=== PATIENT | female | born 1965 | race Caucasian/White ===

== ENCOUNTER → 2024-06-05 | Outpatient (CLI) | payer BC ==
[2024-06-05 11:35] LABS: Partial Thromboplastin Time 24.6 sec (22.0-30.0); Prothrombin Time 10.8 sec (10.0-12.5)
[2024-06-05 15:39] LABS: HCT 42.3 % (37.2-46.3); HGB 13.8 g/dL (12.0-15.0); MCH 29.8 pg (27.0-32.0); MCHC 32.6 g/dL (32.0-37.0); MCV 91.4 FL (80.0-97.0); Mean Platelet Volume 10.9 FL (9.5-12.2); NRBC Per 100 WBC 0 X 10*3/uL (0.00-0.01); Platelet Count 317 X 10*3/uL (140-440); RBC 4.63 X 10*6/uL (4.10-5.20); RDW 13.5 % (11.5-14.5); WBC 7.78 X 10*3/uL (4.50-10.00)
[2024-06-05 15:56] LABS: ALT 38 U/L (8-44); AST 30 U/L (13-35); Albumin 4.1 g/dL (3.8-4.9); Albumin/Globulin Ratio 1.32 Ratio (1.60-3.17); Alkaline Phosphatase 61 U/L (41-126); Blood Urea Nitrogen 25.3 mg/dL (9.0-27.0); Calcium 9.3 mg/dL (8.7-10.3); Carbon Dioxide 23.2 mmol/L (21.6-31.8); Chloride 105 mmol/L (96-109); Globulin 3.1 g/dL (1.6-3.3); Glucose 184 mg/dL (70-110); Potassium 4.3 mmol/L (3.5-5.5); Sodium 140 mmol/L (135-145); Total Bilirubin 0.7 mg/dL (0.3-1.2); Total Protein 7.2 g/dL (6.2-8.2)
== END | disposition home or self-care (01) ==
LOC: LABPAT 10:42
PROVIDERS: ATTEND Orthopaedic Surgery
DX: Z01.818 Encounter for other preprocedural examination (principal); M17.11 Unilateral primary osteoarthritis, right knee; Z22.322 Carrier or suspected carrier of Methicillin resistant Staphylococcus aureus
CPT/HCPCS: 80053; 85027; 85610; 85730; 87070; 93005

== ENCOUNTER 2024-07-01 09:12 | Observation (INO) | payer BC ==
[2024-06-27 16:21] VITALS: BMI 29.4
[~2024-07-01 09:12] MED LIST: HYDROmorphone 0.5 MG/0.5 ML SYRINGE IVP PRN; LIDOCAINE 1% (10MG/ML) FOR IV START INTRADERMA PRN; TRANEXAMIC 1,000 MG/100ML-NACL 1,000 MG in SALINE 1 100ML.BAG IVPB PRN; fentaNYL (PF) 50 MCG/ML 2 ML AMP IVP PRN
[2024-07-01 09:55] LABS: Glucose,Whole Blood 136 mg/dL (70-110)
[2024-07-01] MEDS: LACTATED RINGERS 1,000 ML IV SCH (09:55)
[2024-07-01] MEDS: IV FLUID CONTINUATION 1,000 ML IV ONE (09:55)
[2024-07-01] MEDS: GABAPENTIN 300 MG CAP PO PRN (09:57)
[2024-07-01] MEDS: ACETAMINOPHEN TAB 500 MG TAB PO PRN (09:57)
[2024-07-01] MEDS: MELOXICAM 7.5 MG TAB PO PRN (09:57)
[2024-07-01] MEDS: ONDANSETRON 4 MG/2 ML VIAL IVP ONE (09:58)
[2024-07-01] MEDS: DEXAMETHASONE SOD PHOSPHATE 4 MG/ML 1 ML VIAL IV ONE (09:59)
[2024-07-01] MEDS: MIDAZOLAM 2 MG/2 ML VIAL IV PRN (10:14)
--- NOTE | 2024-07-01 10:20 | P.OP ---
Date of Procedure: 07/01/24 Preoperative Diagnosis: Severe osteoarthritis right knee Postoperative Diagnosis: Severe osteoarthritis right knee Procedure(s) Performed: Right total knee arthroplasty Implants: [employer] Journey II CR Oxinium cruciate retaining femoral component size 5, right [employer] Journey nonporous tibial baseplate size 4, right [employer] Journey II, XLPE Deep Dished articular insert, size 12 mm, Size 3-4, right [employer] Journey Hallie II resurfacing patellar component, oval, 29 mm All components were cemented using Palacos R bone cement The articulation is Oxinium on polyethylene Anesthesia: spinal Surgeon: Cory Rodriguez Director Funeral #1: Bushra Gasca Estimated Blood Loss (ml): 40 Pathology: none sent Condition: stable Disposition: PACU Indications for Procedure: The patient's knee is end-stage, and conservative management has failed. The operation of knee replacement has been discussed at length in the office, as well as potential risks and complications. These are inclusive of, but not limited to: Infection, bleeding, scarring, discomfort, stiffness, blood vessel and nerve damage, need for further surgery, failure to relieve symptoms, persistence, recurrence, or worsening of problems, loosening, dislocation, wear, blood clot, pulmonary embolism, , gait dysfunction, stiffness, and other risks as discussed in the office. Patient elects to proceed and the consent form has been signed. Operative Findings: The operative findings are consistent with severe osteoarthritis of the right knee Description of Procedure: The patient was seen in the preoperative area, the consent was reviewed and the operative site was marked with a skin marker. The patient verified the procedure and the operative site. An adductor canal pain catheter and an iPACK block were placed by anesthesia in the preoperative area. The patient was then brought to the operating room and positioned on the operating room table in the supine position. Preoperative antibiotics and a gram of tranexamic acid were given intravenously. A spinal anesthetic was administered by the anesthesia department. Care was taken to make sure that all pressure points were adequately padded. A tourniquet was placed on the upper thigh and the lower extremity was prepped with ChloraPrep and draped in usual sterile fashion. A universal time-out was then performed which confirmed the patient's name, surgical site, ALLERGIES, and consent. The lower extremity was then exsanguinated and tourniquet was inflated to 250 mmHg. A standard anterior midline approach to the knee was performed. The skin and subcutaneous tissue were sharply dissected down to the patellar tendon. A medial parapatellar arthrotomy was then performed. The knee was then extended, the patellar was everted, and the knee was flexed. The infra-patellar fat pad was removed in order to enhance exposure. The anterior horns of both menisci were excised, and a release was performed to the posterior medial aspect of the knee. On gross visual inspection, there was complete loss of articular cartilage in the medial and patellofemoral joint spaces. There was also significant cartilage damage in the lateral compartment. There were multiple periarticular osteophytes globally about the knee which were then removed with a Ronguer. The femoral canal was then opened with the 9.5 mm intramedullary drill. The 8 mm intramedullary troy was then inserted into the femoral canal with the distal femoral cutting guide set for 5 of valgus. The distal femoral cutting block was then pinned in place. The intramedullary troy was then removed, and the distal femur was then cut. The cutting block was then removed and the cut was checked for symmetry. The resected bone was then measured to confirm the appropriate distal femoral resection. Next, the sizing guide was then placed and set for 3 external rotation based off of the epicondylar axis and Oldham's line. Pins were then placed and the drill holes, and the femur was sized with the sizing stylus. The pins were then removed, and the sizing guide was then removed. The spikes of the appropriate size femoral block was then placed into the predrilled holes, and malleted into place. Two 45 mm pins were then placed into the fixation holes on the cutting block. An kailyn wing was then used to ensure there would be no notching with the anterior cut. The anterior condyles were cut without notching. The anterior chord cut was then performed, followed by the posterior cut, posterior chamfer cut, and the anterior chamfer cut. The collateral ligaments were protected during the entire process. The cutting block was then removed. Any remaining bone and osteophytes were removed from the femur with a Ronguer. Attention was then directed to the tibia. The remaining ACL was removed with a Ronguer, and the tibia was then gently subluxed forward with a large bent knee retractor. Any remaining menisci were excised. The posterior lateral corner was cauterized in order to coagulate the lateral geniculate artery. The extra medullary tibial cutting guide was then placed, set for the appropriate rotation, slope, and depth of resection. The proximal tibia cutting guide was then pinned in place. Proximal tibia was then cut and sized. A curved osteotome was then used to remove any posterior osteophytes from the distal femur. The femoral trial was placed. A narrow saw blade was then used to remove the anterior intracondylar femoral bone. The CR notch trial was then placed. The tibial trial was placed with the appropriate-sized insert. The knee was able to fully extend and flex to 130 and was stable throughout all range of motion. The knee was then extended and the patella was everted. Patella was then measured, and then using an osteotomy guide, the patella was cut at the appropriate level. The patellar component was sized. The patellar drill guide was placed and the patella was drilled. The patella trial was then placed. The knee was then taken through range of motion with the patella trial and the patella tracked normally using the no thumbs technique. The patella trial was then removed. The knee was then flexed and lug holes were drilled through the femoral trial and the femoral trial was then removed. The tibial was then re- exposed, and the tibial broach guide was then pinned in place after it was set for the appropriate rotation to allow for the most coverage without overhang. The tibia was then reamed and broached. The femoral canal was plugged with autologous bone. The cut surfaces of bone were then irrigated with pulsatile lavage. The knee was also irrigated with Irrisept solution. The components were then opened, the cement was mixed. Cement was placed on the backside of the femoral, tibial, and patellar components. Cement was then applied to the tibial surface and pressurized into the surface using finger pressurization technique. The tibial component was then applied and excess cement was removed after it was impacted securely noted to be flush with the cut surface. In similar fashion, the cement was applied to the cut femoral surface, pressurized and using finger pressurization the component was impacted in place. Excess cement was removed. The polyethylene spacer was then implanted and locked into position. Patellar component was then applied in a similar technique and the patellar clamp was used to hold patella in place while the cement hardened. The knee was held in full extension while the cement hardened. Once the cement had fully hardened, the knee was reinspected. Any other cement extrusion was removed the final range of motion testing showed range of motion from 0-130 with excellent stability, both medial and laterally and appropriate alignment of the leg. Patella tracked normally. After the cemented hardened, the tourniquet was released and hemostasis was obtained. A second gram of transexamic acid was given intravenously. The knee was again irrigated. The knee was again taken through range of motion and found to be stable throughout all range of motion of 0-130, and the patella tracked normally. The fascia was then closed with 0 Vicryl followed by #2 strata fix suture. The subcutaneous tissue was closed with 3-0 Vicryl and 3-0 monocryl. Exofin glue was used for the skin and placed with the knee in flexion. After the glue had dried, and Optafoam silver impregnated dressing was applied. A lightly compressive dressing was applied using web roll and Gold wrap. Patient was then transferred to the stretcher and taken to recovery room in stable condition. Sponge and needle counts were correct. The academic affairs assistant Bushra Gasca NP was required due the complexity surgery and the need for a skilled surgical corsetier. She assisted in positioning, draping, retraction, and closure of the wound.
--- NOTE | 2024-07-01 10:41 | P.ANPRN ---
Procedure Note - Anesthesia - Nerve Block Performed Right Adductor Canal Infusion Time Out Performed: Yes Date of Procedure: 07/01/24 Procedure Start Time: Procedure Stop Time: Location of Patient: PreOp Indication: Acute Post-Operative Pain, Requested by Surgeon Sedation Type: Sedate with meaningful contact maintained Preparation: Sterile Prep, Sterile Dressing Position: Supine Catheter: Indwelling Needle Types: Pajunk Needle Gauge: 18 Ultrasound used to visualize needle placement: Yes Ultrasound used to observe medication spread: Yes Injectate: 0.5% Ropivacaine (see comment for volume) (20 ml + 10 ml NS + 4 mg Dexamethasone) Blood Aspirated: No Pain Paresthesia on Injection Noted: No Resistance on Injection: Normal Image Stored and Saved: Yes Events: Uneventful and Well Tolerated
--- NOTE | 2024-07-01 10:43 | P.ANPRN ---
Procedure Note - Anesthesia - Nerve Block Performed Right iPack Single Time Out Performed: Yes Date of Procedure: 07/01/24 Procedure Start Time: : Procedure Stop Time: :35 Location of Patient: PreOp Indication: Acute Post-Operative Pain, Requested by Surgeon Sedation Type: Sedate with meaningful contact maintained Preparation: Sterile Prep Position: Left Lateral Needle Types: Pajunk Needle Gauge: 21 Ultrasound used to visualize needle placement: Yes Ultrasound used to observe medication spread: Yes Injectate: 0.5% Ropivacaine (see comment for volume) (20 ml + 10 ml NS + 4 mg Dexamethasone) Blood Aspirated: No Pain Paresthesia on Injection Noted: No Resistance on Injection: Normal Image Stored and Saved: Yes Events: Uneventful and Well Tolerated
[2024-07-01] MEDS ORDERED: PROPOFOL 10 MG/ML 20 ML VIAL IV ONE (11:10)
[2024-07-01] MEDS ORDERED: DEXAMETHASONE SOD PHOSPHATE 4 MG/ML 1 ML VIAL ONE (11:10)
[2024-07-01] MEDS ORDERED: TRANEXAMIC 1,000 MG/100ML-NACL PREMIX BAG ONE (11:10)
[2024-07-01] MEDS ORDERED: SODIUM CHLORIDE 0.9% (PF) 10 ML VIAL ONE (11:10)
[2024-07-01] MEDS ORDERED: MIDAZOLAM 2 MG/2 ML VIAL ONE (11:10)
[2024-07-01] MEDS ORDERED: ROPIVACAINE 5 MG/ML 30 ML VIAL ONE (11:10)
[2024-07-01] MEDS ORDERED: NA PHOS,M-B/NA PHOS,DI-BA 133 ML ENEMA RECTAL PRN (11:23)
[2024-07-01] MEDS ORDERED: NALOXONE 0.4 MG/ML 1 ML VIAL IV PRN (11:23)
[2024-07-01] MEDS ORDERED: bisacodyL 10 MG SUPP RECTAL PRN (11:23)
[2024-07-01] MEDS ORDERED: ONDANSETRON 4 MG/2 ML VIAL IVP PRN (11:23)
[2024-07-01] MEDS ORDERED: HYDROcodone/APAP 5-325MG 1 EACH TAB PO PRN ×2 (11:23)
[2024-07-01] MEDS ORDERED: MAGNESIUM HYDROXIDE 2,400 MG/30 ML CUP PO PRN (11:23)
[2024-07-01] MEDS: ceFAZolin 1,000 MG in SODIUM CHLORIDE 0.9% 1,000 ML IRRIGATION ONE (11:41)
[2024-07-01] MEDS: LACTATED RINGERS 1,000 ML IV ONE (12:19)
[2024-07-01] MEDS: ROPIVACAINE 1,100 MG, SODIUM CHLORIDE 0.9% 500 ML 330 ML, EMPTY PAIN BALL 1 EACH MISCELLANE PRN (13:30)
[2024-07-01 13:41] LABS: Glucose,Whole Blood 147 mg/dL (70-110)
--- NOTE | 2024-07-01 13:44 | XR ---
EXAMINATION TYPE: XR knee limited RT DATE OF EXAM: 07/01/2024 1:40 PM INDICATION: Patient age:Female; 59 years old; Reason for study: Evaluation for Postop abnormality and alignment; PHH. COMPARISON: None. TECHNIQUE: The Right knee(s) was examined in frontal and lateral projections. FINDINGS: Status post total right knee arthroplasty changes with hardware in appropriate alignment and intact. No evidence of fracture. Subcutaneous lucencies and lucencies within the joint consistent with surgical changes. IMPRESSION: Status post total right knee arthroplasty changes with hardware intact and appropriate alignment. No fractures identified. [facility], , 07/01/2024 1:42 PM
[2024-07-01] MEDS: HYDROmorphone 1 MG/ML 1 ML SYRINGE IVP PRN (15:05)
[2024-07-01] MEDS: GABAPENTIN 300 MG CAP PO SCH (16:43)
[2024-07-01] MEDS: HYDROcodone/APAP 7.5-325MG 1 EACH TAB PO PRN (16:47)
[2024-07-01 16:49] LABS: Glucose,Whole Blood 244 mg/dL (70-110)
[2024-07-01] MEDS ORDERED: DEXTROSE 50% SYRINGE 50 ML IVP PRN ×2 (17:01)
--- NOTE | 2024-07-01 17:14 | P.CONS ---
History of Present Illness - Reason for Consult Consult date: 07/01/24 Medical Management Requesting physician: Cory Rodriguez - History of Present Illness History of Presenting Illness: Patient is a pleasant 59-year-old female with a past medical history of hypertension, hyperlipidemia, insulin-dependent diabetes mellitus, rheumatoid arthritis, hypothyroidism, ocular stroke of left eye, obstructive sleep apnea CPAP dependent nightly, and Crohn's disease. She is currently admitted under orthopedic surgery team status post elective right total knee arthroplasty. We were consulted for medical management throughout hospitalization. Patient was seen and fully evaluated in room 477 shortly after completion of surgical procedure. She currently reports controlled postoperative pain at this time. She is tolerating clear liquid diet and denies having any postoperative nausea or vomiting. Patient denies having any headache, lightheadedness, dizziness, chest pain, palpitations, shortness of breath, nausea, vomiting, or experiencing any numbness in her extremities. Patient reports initially after surgery she was having some numbness and tingling in her toes but states that is since resolved. She reports she began having some creeping up pain but was provided with pain medication by RN and is currently feeling well. Review of systems: Pertinent positives and negatives as discussed in HPI, a complete review of systems was performed and all other systems are negative. Physical exam: Vital signs reviewed and stable. General: Nontoxic, no distress and appears stated age. Derm: Skin warm and dry, normal coloration for ethnicity. Head: Atraumatic, normocephalic and symmetric. Eyes: EOM's intact, no lid lag, and anicteric sclera Mouth: no lip lesions, mucus membranes moist Cardiovascular: regular rate and rhythm with normal S1S2, no murmur, positive posterior tibial pulses bilaterally, and cap refill < 2 seconds. Lungs: Respirations even, regular, and unlabored on room air. Lungs CTA bilaterally, no rhonchi, no rales, no wheezing, and no accessory muscle usage. Abdominal: soft, nontender to palpation, no guarding, no appreciable organomegaly Ext: Movement and sensation intact.. No gross muscle atrophy, no edema, no contractures. Postoperative dressing/Gold wrap in place to right knee. Ice pack also to right knee. Neuro: Speech clear, face symmetrical and CN II-XII grossly intact with no noted focal neuro deficits Psych: Alert and oriented to person, place, time, and situation. Appropriate and pleasant affect. Assessment and Plan of Care: Status post right total knee arthroplasty -Management per primary admitting orthopedic surgery team including DVT prophylaxis, pain management, wound/dressing management, weightbearing, and PT/OT. -DVT prophylaxis with aspirin 325 mg twice daily. Insulin-dependent diabetes mellitus with hyperglycemia -Patient placed on glycemic protocol and to continue scheduled NovoLog 3 units daily and 6 units nightly along with Levemir 20 units nightly. Continue blood glucose checks ACHS. Hypertension Monitor vital signs and continue daily medication regimen with lisinopril 10 mg daily.- Obstructive sleep apnea -Continue use of CPAP nightly and while napping. Hypothyroidism -Continue daily medication regimen with levothyroxine 50 mcg daily. Crohn's disease -May resume Remicade 10 100 mg IVPB q. 18 days after cleared by orthopedic surgery team to resume. Data and imaging reviewed: -Vital signs reviewed. Blood pressure 132/78, heart rate 71, respiratory rate 17, temp 97.9 F, and SpO2 of 99% on room air. -Glucose currently 244. -Reviewed preoperative labs completed 06/05/2024 showing WBC count 7.78, hemoglobin 13.8, and platelet count of 317. BMP revealing sodium 140, potassium 4.3, chloride 105, bicarb 23.2, and anion gap of 11.80 with BUN of 25.3, creatinine 1.1 and GFR 58. Thank you for allowing us to participate in the care of this pleasant patient. Do not hesitate to contact us with questions. Someone can be [facility] all hours of the day at [phone] or via [employer]. Patient was seen independently by Nurse Practitioner. This document was prepared using [employer] dictation software. Please allow for errors in licensed nurse practitioner while rare they do occur. Tru Rosa NP rendered care for this patient independently, reviewed the findings and plan as documented in the note above and agree with plan. I did not physically speak with or examine the patient on this date. Past Medical History Past Medical History: Asthma, Diabetes Mellitus, GERD/Reflux, Hyperlipidemia, Hypertension, Pneumonia, Rheumatoid Arthritis (RA), Sleep Apnea/CPAP/BIPAP, Thyroid Disorder Additional Past Medical History / Comment(s): Patient has Freestyle Jayde. Hx ocular stroke left eye. No Inhalers for Asthma. CPAP use. Chron's. Hx Pneumonia in 1998. History of Any Multi-Drug Resistant Organisms: None Reported Past Surgical History: Adenoidectomy, Appendectomy, Section, Tonsillectomy Additional Past Surgical History / Comment(s): Left shoulder arthroscopy, bilateral knee arthroscopies, left ankle arthroscopy, part of left lung removed due to Pneumonia. Past Anesthesia/Blood Transfusion Reactions: No Reported Reaction Smoking Status: Never smoker - Past Family History Mother Family Medical History: No Reported History Medications and Allergies Home Medications Medication Instructions Recorded Confirmed Type Atorvastatin [Lipitor] 40 mg PO HS 06/30/24 07/01/24 History Cholecalciferol (Vitamin D3) 50 mcg PO QAM 06/30/24 07/01/24 History [Vitamin D3 (50 Mcg = 2000 Iu)] DULoxetine HCL [Cymbalta] 30 mg PO QAM 06/30/24 07/01/24 History Fexofenadine/Pseudoephedrine 1 tab PO DAILY 06/30/24 07/01/24 History [Jackie-D 24 Hour Tablet] Folic Acid 1 mg PO DAILY 06/30/24 07/01/24 History Gabapentin 600 mg PO TID 06/30/24 07/01/24 History Insulin Aspart [NovoLOG] 3 units SQ QAM 06/30/24 07/01/24 History Insulin Aspart [NovoLOG] 6 units SQ HS 06/30/24 07/01/24 History Insulin Glargine [Lantus Vial] 20 unit SQ HS 06/30/24 07/01/24 History Levothyroxine Sodium [Synthroid] 50 mcg PO QAM 06/30/24 07/01/24 History Magnesium 420 mg PO HS 06/30/24 07/01/24 History Montelukast [Singulair] 10 mg PO HS 06/30/24 07/01/24 History Zinc Gluconate [Zinc] 50 mg PO DAILY 06/30/24 07/01/24 History amLODIPine [Norvasc] 5 mg PO QAM 06/30/24 07/01/24 History azaTHIOprine [Imuran] 50 mg PO QAM 06/30/24 07/01/24 History inFLIXimab [Remicade] 100 mg IVPB Q182D 06/30/24 07/01/24 History lisinopriL [Zestril] 10 mg PO BID 06/30/24 07/01/24 History Allergies Allergy/AdvReac Type Severity Reaction Status Date / Time No Known Allergies Allergy Verified 07/01/24 09:38 Physical Exam Vitals: Vital Signs Temp Pulse Pulse Resp BP BP Pulse Ox 07/01/24 14:38 66 16 114/68 95 07/01/24 14:23 66 16 130/71 95 07/01/24 14:08 65 16 131/71 96 07/01/24 13:53 67 16 143/71 96 07/01/24 13:38 70 16 126/70 94 L 07/01/24 13:23 68 16 130/77 94 L 07/01/24 13:08 97.6 F 73 22 144/68 94 L 07/01/24 10:40 68 12 138/75 98 07/01/24 09:44 98.1 F 75 14 155/85 96 Intake and Output 06/30/24 07/01/24 07/01/24 22:59 06:59 14:59 Intake Total 1351 Output Total 40 Balance 1311 Intake: IV 1351 Output: Estimated Blood Loss 40 Other: Weight 80.6 kg Results Labs: Abnormal Lab Results - Last 24 Hours (Table) 07/01/24 07/01/24 Range/Units 09:52 13:39 POC Glucose (mg/dL) 136 H 147 H (70-110) mg/dL
[2024-07-01] MEDS: INSULIN ASPART (NovoLOG) 100 UNIT/ML VIAL SQ SCH (18:47)
[2024-07-01] MEDS: DULoxetine HCL 30 MG CAPSULE.DR PO SCH (19:36)
[2024-07-01 20:18] LABS: Glucose,Whole Blood 305 mg/dL (70-110)
[2024-07-01] MEDS ORDERED: INSULIN ASPART (NovoLOG) 100 UNIT/ML VIAL SQ SCH (21:00)
[2024-07-01] MEDS: lisinopriL 10 MG TAB PO SCH (21:03)
[2024-07-01] MEDS: MONTELUKAST 10 MG TAB PO SCH (21:03)
[2024-07-01] MEDS: ASPIRIN 325 MG TAB PO SCH (21:03)
[2024-07-01] MEDS: MAGNESIUM OXIDE 400 MG TAB PO SCH (21:03)
[2024-07-01] MEDS: SENNOSIDES-DOCUSATE SODIUM 1 EACH TAB PO SCH (21:03)
[2024-07-01] MEDS: ATORVASTATIN 40 MG TAB PO SCH (21:03)
[2024-07-01] MEDS: INSULIN DETEMIR (LEVEMIR) 100 UNIT/ML SYR SQ SCH (21:03)
[2024-07-02] MEDS: HYDROmorphone 0.5 MG/0.5 ML SYRINGE IVP PRN (02:25)
[2024-07-02] MEDS: HYDROcodone/APAP 7.5-325MG 1 EACH TAB PO PRN (05:42)
[2024-07-02] MEDS: LEVOTHYROXINE 50 MCG TAB PO SCH (06:37)
[2024-07-02 06:46] LABS: Glucose,Whole Blood 180 mg/dL (70-110)
--- NOTE | 2024-07-02 07:03 | P.PN ---
Progress Note - Text Progress Note Date: 07/02/24 Postoperative day # 1 status post total knee arthroplasty, and adductor canal catheter placed for postoperative analgesia, currently at ropivacaine 0.2% 8 mL per hour and continuous infusion, visual analogue scale is 5-6/10, patient using oral pain medication for breakthrough pain. Assessment and plan= Acute postoperative pain, adductor canal catheter for pain control, patient complaining of breakthrough pain, she reported that she is not benefiting from [place],I recommend to start patient on Percocet 5/325 or Percocet 7.5/325 every 6 hours as needed.
[2024-07-02 07:38] VITALS: BP 109/58; PULSE 71; RESP 16; TEMP 98.2
[2024-07-02 08:32] LABS: Basophils # (A) 0.01 X 10*3/uL (0.00-0.10); Basophils % (A) 0.1 %; Eosinophils # (A) 0.01 X 10*3/uL (0.04-0.35); Eosinophils % (A) 0.1 %; HGB 11.4 g/dL (12.0-15.0); Lymphocytes # (A) 1.54 X 10*3/uL (0.90-5.00); Lymphocytes % (A) 13.4 %; MCH 30.1 pg (27.0-32.0); MCHC 33.5 g/dL (32.0-37.0); MCV 89.7 FL (80.0-97.0); Mean Platelet Volume 10.4 FL (9.5-12.2); Monocytes # (A) 0.38 X 10*3/uL (0.20-1.00); Monocytes % (A) 3.3 %; NRBC Per 100 WBC 0 X 10*3/uL (0.00-0.01); Neutrophils # (A) 9.48 X 10*3/uL (1.80-7.70); Neutrophils % (A) 82.6 %; Platelet Count 245 X 10*3/uL (140-440); RBC 3.79 X 10*6/uL (4.10-5.20); RDW 14.3 % (11.5-14.5); WBC 11.48 X 10*3/uL (4.50-10.00)
[2024-07-02] MEDS: CHOLECALCIFEROL 25 MCG (1000 IU) TABLET PO SCH (08:34)
[2024-07-02] MEDS: INSULIN ASPART (NovoLOG) 100 UNIT/ML VIAL SQ SCH (08:35)
[2024-07-02] MEDS: ZINC SULFATE 220 MG CAP PO SCH (08:35)
[2024-07-02] MEDS: azaTHIOprine 50 MG TAB PO SCH (08:35)
[2024-07-02] MEDS: amLODIPine 5 MG TAB PO SCH (08:35)
[2024-07-02] MEDS: FOLIC ACID 1 MG TAB PO SCH (08:35)
[2024-07-02 08:54] LABS: BUN/Creat Ratio 23.36 Ratio (12.00-20.00); Blood Urea Nitrogen 25.7 mg/dL (9.0-27.0); Carbon Dioxide 20.7 mmol/L (21.6-31.8); Chloride 104 mmol/L (96-109); Glucose 196 mg/dL (70-110); Magnesium 1.7 mg/dL (1.5-2.4); Potassium 4.8 mmol/L (3.5-5.5); Sodium 135 mmol/L (135-145)
[2024-07-02] MEDS ORDERED: DULoxetine HCL 30 MG CAPSULE.DR PO SCH (09:00)
[2024-07-02] MEDS: MAGNESIUM SULFATE-D5W PMX 1 GM in DEXTROSE/WATER 1 100ML.BAG IVPB ONE (09:30)
[2024-07-02] MEDS ORDERED: oxyCODONE-APAP 5-325MG 1 EACH TAB PO PRN (11:01)
--- NOTE | 2024-07-02 11:01 | P.DS ---
Providers Date of admission: 07/02/24 09:46 Expected date of discharge: 07/02/24 Attending physician: Cory Rodriguez Consults: 07/01/24 11:28 Consult Physician Routine Consulting Provider: Asad Sanders Consult Reason/Comments: medical management, group covering [facility] patients. Do you want consulting provider notified?: Yes Primary care physician: [facility] - Discharge Diagnosis(es) (1) Osteoarthritis of right knee Current Visit: Yes Status: Acute (2) S/P total knee arthroplasty Current Visit: Yes Status: Acute Hospital Course: This is a 59-year-old female with known history of degenerative arthritis of the right knee. The patient presented for evaluation as an outpatient. After discussion and consideration patient elects to proceed with total knee arthroplasty. The patient is seen preoperatively by Dr. Rodriguez and medically cleared for surgery by their primary care physician. Patient is admitted to [facility] on 07/01/2024 for total knee arthroplasty. The procedure is performed without complication or sequelae. The patient is doing well postoperatively. Labs and vital signs are stable on day of discharge. On day of discharge patient's knee incision is healing well. There is minimal erythema. There is no drainage noted at this time. There is minimal soft tissue swelling to the knee. Patient has full foot and ankle motion without difficulty or pain. Calf is soft and nontender to palpation. Neurovascular status to the right lower extremity is intact. Patient is discharged home in good condition. Please see med rec for accurate list of home medications. Plan - Discharge Summary Discharge Rx Participant: No New Discharge Prescriptions: New Aspirin 325 mg PO BID #60 tab Sennosides [Senokot] 2 tab PO DAILY PRN #60 tablet PRN Reason: Constipation oxyCODONE-APAP 5-325MG [Percocet 5-325 mg] 1 tab PO Q6HR PRN #20 tab PRN Reason: Pain No Action Magnesium 420 mg PO HS Insulin Aspart [NovoLOG] 6 units SQ HS Insulin Aspart [NovoLOG] 3 units SQ QAM Gabapentin 600 mg PO TID Atorvastatin [Lipitor] 40 mg PO HS Zinc Gluconate [Zinc] 50 mg PO DAILY Insulin Glargine [Lantus Vial] 20 unit SQ HS Fexofenadine/Pseudoephedrine [Jackie-D 24 Hour Tablet] 1 tab PO DAILY azaTHIOprine [Imuran] 25 mg PO QAM Levothyroxine Sodium [Synthroid] 50 mcg PO QAM Cholecalciferol (Vitamin D3) [Vitamin D3 (50 Mcg = 2000 Iu)] 50 mcg PO QAM DULoxetine HCL [Cymbalta] 30 mg PO AC-BID lisinopriL [Zestril] 10 mg PO BID amLODIPine [Norvasc] 5 mg PO QAM Montelukast [Singulair] 10 mg PO HS Folic Acid 1 mg PO DAILY inFLIXimab [Remicade] 100 mg IVPB Q182D Discharge Medication List Atorvastatin [Lipitor] 40 mg PO HS 06/30/24 [History] Cholecalciferol (Vitamin D3) [Vitamin D3 (50 Mcg = 2000 Iu)] 50 mcg PO QAM 06/30/24 [History] DULoxetine HCL [Cymbalta] 30 mg PO AC-BID 06/30/24 [History] Fexofenadine/Pseudoephedrine [Jackie-D 24 Hour Tablet] 1 tab PO DAILY 06/30/24 [History] Folic Acid 1 mg PO DAILY 06/30/24 [History] Gabapentin 600 mg PO TID 06/30/24 [History] Insulin Aspart [NovoLOG] 3 units SQ QAM 06/30/24 [History] Insulin Aspart [NovoLOG] 6 units SQ HS 06/30/24 [History] Insulin Glargine [Lantus Vial] 20 unit SQ HS 06/30/24 [History] Levothyroxine Sodium [Synthroid] 50 mcg PO QAM 06/30/24 [History] Magnesium 420 mg PO HS 06/30/24 [History] Montelukast [Singulair] 10 mg PO HS 06/30/24 [History] Zinc Gluconate [Zinc] 50 mg PO DAILY 06/30/24 [History] amLODIPine [Norvasc] 5 mg PO QAM 06/30/24 [History] azaTHIOprine [Imuran] 25 mg PO QAM 06/30/24 [History] inFLIXimab [Remicade] 100 mg IVPB Q182D 06/30/24 [History] lisinopriL [Zestril] 10 mg PO BID 06/30/24 [History] Aspirin 325 mg PO BID #60 tab 07/02/24 [Rx] Sennosides [Senokot] 2 tab PO DAILY PRN #60 tablet 07/02/24 [Rx] oxyCODONE-APAP 5-325MG [Percocet 5-325 mg] 1 tab PO Q6HR PRN #20 tab 07/02/24 [Rx] Follow up Appointment(s)/Referral(s): [facility] [[facility]] - Cory Rodriguez DO [Doctor of Osteopathic Medicine] - 2 Weeks Activity/Diet/Wound Care/Special Instructions: Weightbearing as tolerated with a walker. CPM 5-6h daily as tolerated. Leave dressing intact. Dressing may be removed by home care nurse or by patient in 7 days. Then change dressing twice daily until follow up. May shower with initial dressing intact and after removal. If dressing become saturated, please remove. Recommend use of compression stockings daily until follow up to help prevent swelling and blood clots. May remove at night before sleeping. Please take aspirin 325mg twice daily for 30 days to prevent blood clots. Please follow up with [facility] and call with any questions or concerns, . Discharge Disposition: HOME WITH HOME HEALTH SERVICES
--- NOTE | 2024-07-02 11:16 | P.PN ---
Subjective Progress Note Date: 07/02/24 Hospital Course: Patient is a pleasant 59-year-old female with a past medical history of hypertension, hyperlipidemia, insulin-dependent diabetes mellitus, rheumatoid arthritis, hypothyroidism, ocular stroke of left eye, obstructive sleep apnea CPAP dependent nightly, and Crohn's disease. She is currently admitted under orthopedic surgery team status post elective right total knee arthroplasty. We were consulted for medical management throughout hospitalization. Physical exam: Patient seen and fully evaluated at bedside this morning. She is postoperative day 1 status post right knee arthroplasty. She reports other than mild pain she is doing great. Patient reports she is ready to go home. Patient denies having any difficulties with ambulation or doing stairs this morning. She denies having any other complaints including headache, lightheadedness, dizziness, chest pain, palpitations, shortness of breath, or experiencing any numbness/tingling in her extremities. Patient visiting with family at bedside and patiently awaiting discharge home. Vital signs reviewed and stable. General: Nontoxic, no distress and appears stated age. Derm: Skin warm and dry, normal coloration for ethnicity. Head: Atraumatic, normocephalic and symmetric. Eyes: EOM's intact, no lid lag, and anicteric sclera Mouth: no lip lesions, mucus membranes moist Cardiovascular: regular rate and rhythm with normal S1S2, no murmur, positive posterior tibial pulses bilaterally, and cap refill < 2 seconds. Lungs: Respirations even, regular, and unlabored on room air. Lungs CTA bilaterally, no rhonchi, no rales, no wheezing, and no accessory muscle usage. Abdominal: soft, nontender to palpation, no guarding, no appreciable organomegaly Ext: Movement and sensation intact.. No gross muscle atrophy, no edema, no contractures. Postoperative dressing/Gold wrap in place to right knee. Ice pack also to right knee. Neuro: Speech clear, face symmetrical and CN II-XII grossly intact with no noted focal neuro deficits Psych: Alert and oriented to person, place, time, and situation. Appropriate and pleasant affect. Assessment and Plan of Care: Status post right total knee arthroplasty -Management per primary admitting orthopedic surgery team including DVT prophylaxis, pain management, wound/dressing management, weightbearing, and PT/OT. -DVT prophylaxis with aspirin 325 mg twice daily. Hypomagnesemia Patient with chronic hypomagnesemia on magnesium supplements daily. morning magnesium slightly low at 1.7. Patient given 1 g mag sulfate in addition to her normal scheduled Mag-Ox 400 mg daily. Insulin-dependent diabetes mellitus with hyperglycemia -Patient placed on glycemic protocol and to continue scheduled NovoLog 3 units daily and 6 units nightly along with Levemir 20 units nightly. Continue blood glucose checks ACHS. Hypertension Monitor vital signs and continue daily medication regimen with lisinopril 10 mg daily.- Obstructive sleep apnea -Continue use of CPAP nightly and while napping. Hypothyroidism -Continue daily medication regimen with levothyroxine 50 mcg daily. Crohn's disease -May resume Remicade 10 100 mg IVPB q. 18 days after cleared by orthopedic surgery team to resume. Data and imaging reviewed: -Vital signs reviewed. Blood pressure 1/58, heart rate 71, respiratory rate 16, temp 98.2 F, and SpO2 of 92% on room air. -Postoperative labs reviewed. CBC showing leukocytosis with WBC count of 11.48 and normocytic anemia with hemoglobin of 11.4. BMP unremarkable with the exception of hyperglycemia with glucose of 196. Magnesium 1.7. Patient is medically optimized for discharge once cleared by primary admitting orthopedic surgery team. Thank you for allowing us to participate in the care of this pleasant patient. Do not hesitate to contact us with questions. Someone can be reached from the [facility] hospitalist group all hours of the day at [phone] or via [employer]. Patient was seen independently by Nurse Practitioner. This document was prepared using [employer] dictation software. Please allow for errors in inspector of weights and measures while rare they do occur. Tru Rosa NP rendered care for this patient independently, reviewed the findings and plan as documented in the note above and agree with plan. I did not physically speak with or examine the patient on this date. . Objective - Vital Signs Vital signs: Vital Signs Temp 98.2 F 07/02/24 06:56 Pulse 71 07/02/24 06:56 Resp 16 07/02/24 06:56 BP 109/58 07/02/24 06:56 Pulse Ox 92 L 07/02/24 06:56 FiO2 21 07/01/24 22:57 Intake & Output 07/01/24 07/02/24 07/02/24 18:59 06:59 18:59 Intake Total 1351 Output Total 40 Balance 1311 Weight 80.6 kg Intake: IV 1351 Output: Estimated Blood Loss 40 Other: Voiding Method Toilet # Voids 1 2 - Labs CBC & Chem 7: 07/02/24 03:07 07/02/24 03:07 Labs: Abnormal Lab Results - Last 24 Hours (Table) 07/01/24 07/01/24 07/01/24 Range/Units 09:52 13:39 16:48 POC Glucose (mg/dL) 136 H 147 H 244 H (70-110) mg/dL 07/01/24 07/02/24 Range/Units 20:16 06:44 POC Glucose (mg/dL) 305 H 180 H (70-110) mg/dL
[2024-07-02 11:38] LABS: Glucose,Whole Blood 262 mg/dL (70-110)
== END 2024-07-02 13:42 | disposition home health service (06) ==
LOC: OR 09:12 → 4SSUR 12:57 → OR 07-02 09:46
PROVIDERS: ADMIT Orthopaedic Surgery; ATTEND Orthopaedic Surgery
DX: M17.11 Unilateral primary osteoarthritis, right knee (principal); E11.65 Type 2 diabetes mellitus with hyperglycemia; E83.42 Hypomagnesemia; D72.829 Elevated white blood cell count, unspecified; D64.9 Anemia, unspecified; I10 Essential (primary) hypertension; E78.5 Hyperlipidemia, unspecified; E03.9 Hypothyroidism, unspecified; M06.9 Rheumatoid arthritis, unspecified; K50.90 Crohn's disease, unspecified, without complications; G47.33 Obstructive sleep apnea (adult) (pediatric); J45.909 Unspecified asthma, uncomplicated; Z79.4 Long term (current) use of insulin; Z79.890 Hormone replacement therapy; Z79.899 Other long term (current) drug therapy; Z79.624 Long term (current) use of inhibitors of nucleotide synthesis; Z79.620 Long term (current) use of immunosuppressive biologic; Z86.69 Personal history of other diseases of the nervous system and sense organs; Z99.89 Dependence on other enabling machines and devices
CPT/HCPCS: 27447; 94660; 97161; 64999; 64448; 80048; 83735; 85025; 73560; G0378; C1713; C1776; C1751; J7500; J2250; J1100; J0690 ×3; J2405; J1171 ×2; J3475; J2795; J2704